=== PATIENT | female | born 1970 | race Two or more races ===

== ENCOUNTER 2020-01-19 16:06 | Emergency (ER) | payer SELFPAY ==
[~2020-01-19] VITALS: Ht 154.9 cm; Wt 57.2 kg
[2020-01-19 16:27] VITALS: BP 167/98
--- NOTE | 2020-01-19 16:32 | Emergency Room Report ---
History of Present Illness General Chief Complaint: Eye Problems Source: Medical Record Present Illness HPI 49-year-old female with no significant past medical history here complaining of a painful and pruritic mass in the left lower eyelid that started yesterday. Denies any fall or injury. Denies any discharge. Denies any photophobia, blurry vision. Denies any cough or congestion. Has not taken medication for symptom relief. Allergies: Coded Allergies: No Known Allergies (Unverified , 01/19/20) COVID-19 Screening Contact w/high risk pt: No Recent Travel to affected area: No Experienced COVID-19 symptoms?: No COVID-19 Testing performed RELIEF OPERATOR: No Patient History Past Medical History: see triage record Past Surgical History: none Pertinent Family History: none Now: No Immunizations: UTD Reviewed Nursing Documentation: PMH: Agreed; PSxH: Agreed Nursing Documentation-PMH Past Medical History: No History, Except For Hx Asthma: Yes Review of Systems All Other Systems: negative except mentioned in HPI Physical Exam Vital Signs Date Time Temp Pulse Resp B/P (MAP) Pulse Ox O2 Delivery O2 Flow Rate FiO2 01/19/20 16:21 98.2 64 14 167/98 (121) 98 Room Air Sp02 EP Interpretation: reviewed, normal General Appearance: well appearing, no apparent distress Head: normocephalic, atraumatic Eyes: left eye other - Stye noted left lower eyelid ENT: hearing grossly normal, normal voice Neck: full range of motion, supple Respiratory: no respiratory distress, speaking full sentences Cardiovascular #1: normal inspection, no murmur Gastrointestinal: non tender Genitourinary: no CVA tenderness Musculoskeletal: gait/station normal Neurologic: alert, oriented Psychiatric: normal inspection, judgement/insight normal Skin: no rash Lymphatic: no adenopathy Medical Decision Making PA Attestation Diagnosis and treatment plans were reviewed and discussed with my supervising physician Dr. Lynch Diagnostic Impression: Primary Impression: Hordeolum externum ER Course 49-year-old female with no significant past medical history here complaining of a painful and pruritic mass in the left lower eyelid that started yesterday. Denies any fall or injury. Denies any discharge. Denies any photophobia, blurry vision. Denies any cough or congestion. Has not taken medication for symptom relief. Ddx considered but are not limited to: bacterial conjunctivitis, allergic conjunctivitis, viral conjunctivitis, periorbital cellulitis, global trauma Vital signs: are WNL, pt. is afebrile H&PE are most consistent with: hordeolum of left lower eyelid ORDERS: Erythromycin ophthalmic ointment, olopatadine ophthalmic ED INTERVENTIONS: None required at this time. DISCHARGE: At this time pt. is stable for d/c to home. Will provide printed patient care instructions, and any necessary prescriptions. Care plan and follow up instructions have been discussed with the patient prior to discharge. Patient take medication as directed, follow primary doctor, avoid scratching eyes, if worsening symptoms return to the emergency room Last Vital Signs Date Time Temp Pulse Resp B/P (MAP) Pulse Ox O2 Delivery O2 Flow Rate FiO2 01/19/20 16:27 98.2 14 167/98 98 Room Air 01/19/20 16:21 64 Disposition: HOME, SELF-CARE Condition: Stable Scripts Olopatadine HCl (Olopatadine HCl) 5 Ml Drops 2 DROP OP BID, #5 ML Prov: Akash Bagley 01/19/20 Erythromycin Base (ERYTHROMYCIN*) 3.5 Gm Oint...g. 1 APPLIC LEFT EYE Q6HR for 7 Days, #3.5 GM 0 Refills Prov: Akash Bagley 01/19/20 Patient Instructions: Danilo Additional Instructions: Take medication as directed, follow with primary doctor, change pillowcase, wear protective sunglasses, avoid touching eyes, if worsening symptoms return to the emergency room Akash Bagley January 19, 2020 16:32
[2020-01-19] MEDS ORDERED: ERYTHROMYCIN3.5 GM LEFT EYE (16:33)
[2020-01-19] MEDS ORDERED: OLOPATADINE HCL5 ML OP (16:33)
[2020-01-19 16:42] VITALS: BP 167/98
== END 2020-01-19 16:43 | disposition home or self-care (01) ==
LOC: EMR 16:25
DX: H00.015 Hordeolum externum left lower eyelid (principal)
CPT/HCPCS: 99282